=== PATIENT | male | born 1970 | race Caucasian/White ===

== ENCOUNTER 2020-11-27 22:23 | Emergency (ER) | payer SELFPAY ==
[2020-11-27] MEDS ORDERED: fentaNYL 100 MCG/2 ML SDV IVPUSH ONE (23:08)
--- NOTE | 2020-11-27 23:11 | EDM.PDOC ---
ED HPI GENERAL MEDICAL PROBLEM - General Chief Complaint: Chest Pain Stated Complaint: MEDICAL [place] Time Seen by Provider: 11/27/20 23:05 Source of Information: Reports: Patient, RN Notes Reviewed History Limitations: Reports: No Limitations - History of Present Illness INITIAL COMMENTS - FREE TEXT/NARRATIVE: 50-year-old gentleman who is on hospice current jail resident arrives to the emergency department via EMS services for recent fall where he injured himself hitting his chest just below the nipple line right side he is experiencing pain however no difficulty breathing. Hospice is asked for an evaluation of his wound. The injury happened earlier today - Related Data Allergies Allergy/AdvReac Type Severity Reaction Status Date / Time No Known Allergies Allergy Verified 11/27/20 22:31 Home Meds: Home Meds Acetaminophen [Tylenol] 2 tab PO Q8HR 11/27/20 [History] Diclofenac Sodium [Voltaren Arthritis Pain] 1 applic TOP QID 11/27/20 [History] HYDROmorphone [Dilaudid 1 MG/ML Soln] 0.5 ml PO Q2HR PRN 11/27/20 [History] LORazepam [LORazepam Intensol] 0.25 ml PO Q2HR PRN 11/27/20 [History] Lactulose [Cephulac] 30 ml PO BID 11/27/20 [History] Lidocaine 4% [Aspercreme 4%] 1 applic TOP DAILY 11/27/20 [History] Melatonin 2 tab PO BEDTIME 11/27/20 [History] Metoclopramide HCl [Reglan] 1 tab PO Q4HR PRN 11/27/20 [History] Midodrine 1 tab PO Q4HR PRN 11/27/20 [History] Ondansetron [Zofran Odt] 1 tab PO TID 11/27/20 [History] Pantoprazole Sodium [Protonix] 1 tab PO DAILY 11/27/20 [History] Rifaximin [Xifaxan] 1 tab PO BID 11/27/20 [History] Zolpidem Tartrate [Ambien] 0.5 tab PO BEDTIME 11/27/20 [History] haloperidoL [Haldol] 1 tab PO Q4HR PRN 11/27/20 [History] Past Medical History Gastrointestinal History: Reports: Jaundice, Other (See Below) Other Gastrointestinal History: end stage liver failure 2nd to etoh abuse on hospice Psychiatric History: Reports: Addiction Social & Family History - Tobacco Use Tobacco Use Status *Q: Unknown Ever Used Tobacco ED ROS GENERAL - Review of Systems Review Of Systems: See Below Constitutional: Reports: No Symptoms Respiratory: Reports: No Symptoms Cardiovascular: Reports: Chest Pain GI/Abdominal: Reports: No Symptoms ED EXAM, UPPER BACK/NECK PAIN - Physical Exam Exam: See Below Exam Limited By: No Limitations General Appearance: Alert, WD/WN, No Apparent Distress Cardiovascular/Respiratory: Regular Rate, Rhythm, No M/R/G, Normal Breath Sounds, Other (Does have bruising T4 level left side hematoma is appreciated underneath the wound I do not appreciate any crepitus) GI/Abdominal: Soft, Non-Tender Skin Exam: Jaundice Course - Vital Signs Last Recorded V/S: Last Vital Signs Temp 97.3 F 11/27/20 23:09 Pulse 81 11/27/20 23:09 Resp 14 11/27/20 23:09 BP 130/84 11/27/20 23:09 Pulse Ox 96 11/27/20 23:09 - Orders/Labs/Meds Meds: Medications Discontinued Medications Generic Name Dose Route Start Last Admin Trade Name Freq PRN Reason Stop Dose Admin Fentanyl 50 mcg 11/27/20 23:08 11/27/20 23:22 Fentanyl 100 Mcg/2 Ml Sdv IVPUSH 11/27/20 23:09 50 mcg ONETIME ONE Administration Departure - Departure Time of Disposition: 01:00 Disposition: DC/Tfer to Long-Term Care 63 Condition: Poor Clinical Impression: Chest wall injury Qualifiers: Encounter type: initial encounter Qualified Code(s): S29.9XXA - Unspecified injury of thorax, initial encounter - Discharge Information Instructions: Blunt Chest Trauma Referrals: PCP,None [Primary Care Provider] - Forms: ED Department Discharge Additional Instructions: Continue with your current medications continue with hospice care Sepsis Event Note (ED) - Focused Exam Vital Signs: Vital Signs Temp Pulse Resp BP Pulse Ox 11/27/20 23:09 97.3 F 81 14 130/84 96 - Assessment/Plan Plan: Assessment Acuity = acute Site and laterality = chest wall trauma Etiology = secondary to fall Manifestations = none Location of injury = Home Lab values = chest x-ray reveals a right pleural effusion with mid subsegment atelectasis on the left side no acute abnormality Plan [facility] This note was dictated using [employer] voice recognition software please call with any questions on syntax or grammar.
--- NOTE | 2020-11-28 00:52 | CRLCR ---
Indication: Fall. Injury Technique: Chest 2 views Comparison: 07/17/2010 Findings/Impression: Cardiovascular and mediastinum: Partially obscured cardiac silhouette. Apparent cardiomegaly. Lungs and pleural spaces: A right pleural effusion. Apparent elevation of the left hemidiaphragm. A subpulmonic left pleural effusion is not excluded. Perihilar compressive changes with left midlung subsegmental atelectasis. No gross pneumothorax seen. Bones and soft tissues: No significant findings. Dictated by Zach Perez MD @ 11/28/2020 12:50:59 AM Dictated by: Zach Perez MD @ 11/28/2020 00:51:05 (Electronically Signed)
== END 2020-11-28 01:57 ==
LOC: JP.ED 22:23
DX: S20.212A Contusion of left front wall of thorax, initial encounter (principal); W22.8XXA Striking against or struck by other objects, initial encounter
CPT/HCPCS: 71046; 96374; 99283; 99285-25; J3010